=== PATIENT | female | born 2000 | race Caucasian/White ===

== ENCOUNTER 2024-11-05 06:16 | Day surgery (SDC) | payer SELFPAY ==
[2024-11-03 14:36] VITALS: BMI 21.7
[2024-11-05] MEDS ORDERED: GENTAMICIN SO4 80 MG/2 ML VIAL ONE ×2 (07:41→11:11)
[2024-11-05] MEDS ORDERED: BUPIVACAINE HCL/PF 0.25% (2.5MG/ML) 10 ML VIAL ONE (07:41)
[2024-11-05] MEDS ORDERED: POLYMYXIN B SULFATE 500,000 UNIT VIAL ONE ×2 (07:41→11:11)
[2024-11-05] MEDS ORDERED: ceFAZolin SODIUM 1 GM VIAL ONE ×2 (07:41→11:11)
[2024-11-05] MEDS ORDERED: LIDOCAINE 1%/EPI 1:100000 (20 ML MULTI DOSE VIAL) ONE (07:42)
[2024-11-05] MEDS ORDERED: PROPOFOL 40 ML ONE (07:50)
[2024-11-05] MEDS ORDERED: MIDAZOLAM HCL 2 MG/2 ML SINGLE DOSE VIAL ONE (07:51)
[2024-11-05] MEDS ORDERED: ROCURONIUM BROMIDE 50 MG/5 ML SYRINGE ONE ×2 (07:51→09:32)
[2024-11-05] MEDS ORDERED: SUCCINYLCHOLINE CHLORIDE 200 MG/10 ML SYRINGE ONE (07:51)
[2024-11-05] MEDS ORDERED: ACETAMINOPHEN INJECTION 100 ML ONE (07:53)
[2024-11-05] MEDS ORDERED: DEXMEDETOMIDINE HCL 200 MCG/2 ML IVPB ONE (08:18)
[2024-11-05] MEDS ORDERED: PROPOFOL 20 ML ONE ×2 (08:52→11:17)
[2024-11-05] MEDS ORDERED: LIDOCAINE HCL/PF 2% SDV 5ML VIAL ONE (08:56)
[2024-11-05] MEDS ORDERED: ePHEDrine SULFATE 50 MG/1 ML AMPULE ONE (09:50)
[2024-11-05] MEDS ORDERED: ONDANSETRON 4 MG/2 ML VIAL ONE (10:28)
[2024-11-05] MEDS ORDERED: KETOROLAC TROMETHAMINE 30 MG/1 ML VIAL ONE (10:28)
[2024-11-05] MEDS ORDERED: HYDROmorphone HCL/PF 1 MG/ML VIAL ONE (10:29)
[2024-11-05] MEDS ORDERED: NEOSTIGMINE METHYLSULFATE 0.5 MG/1 ML - 10 ML MDV ONE (10:36)
[2024-11-05 13:16] VITALS: RESP 18; TEMP 97.1
[2024-11-05 14:08] VITALS: BP 104/56; PULSE 80
== END 2024-11-05 14:05 | disposition home or self-care (01) ==
LOC: FASU 06:16
PROVIDERS: ATTEND Surgery
PROC: 0H0V0JZ Alteration of Bilateral Breast with Synthetic Substitute, Open Approach (ICD-10-PCS; principal; 2024-11-05 09:11)
DX: Z41.1 Encounter for cosmetic surgery (principal); N64.82 Hypoplasia of breast; N64.89 Other specified disorders of breast
CPT/HCPCS: 19325; L8600; 81025; 94760; J0131